=== PATIENT | male | born 1930 | race Caucasian/White ===

== ENCOUNTER → 2016-11-05 | Outpatient (CLI) | payer OTHER, MEDICARE ==
[~2016-11-05] VITALS: Ht 167.6 cm; Wt 78.7 kg
[~2016-11-05] MED LIST: ADULT LOW DOSE81 MG PO; BYSTOLIC2.5 MG PO; CARVEDILOL12.5 MG PO; COREG3.125 MG PO; CRESTOR10 MG PO; CRESTOR20 MG PO; EFFIENT10 MG PO; K-DUR 20 MEQ T20 MEQ PO; LISINOPRIL5 MG PO; LORTAB 5 MG/5001 TA1 PO; PLAVIX 75 MG TA75 MG PO; PRESERVISION T1 EACH PO; TRAMADOL 50 MG50 MG PO
--- NOTE | ~2016-11-05 | HPC ---
[facility] [place] [address] PAIN MANAGEMENT CONSULTATION Name: CLARK CASE [facility] [id number] Admission: 11/05/16 Attend Phys: Kris Burnham DO Discharge: Date of : 32 Report #: [id number] THIS REPORT FOR: //name// CC: JEFFERY Burnham DATE OF SERVICE: 11/05/2016 DATE OF SERVICE: 11/05/2016. REFERRING PHYSICIAN: Nurse practitioner Alejandra Bowman. CHIEF COMPLAINT: Low back pain, lower extremity pain and paresthesias. HISTORY OF PRESENT ILLNESS: As you know, the patient is a very pleasant 86-year-old male who returns today in followup visit requesting to undergo the next in a series of epidural injections under fluoroscopic guidance. The patient states that he has discontinued his Effient 7 days ago in preparation for today's procedure. The patient indicates pain level of 10/10 while standing up, exacerbated with movement, lying on his right side, getting up from a seated position, improves with lying down, sitting position and epidural injections. He has returned requesting the next in a series of epidural injections, both in the success of previous intervention. ALLERGIES: No known drug allergies. CURRENT MEDICATIONS: Aspirin, Nexium, Ocuvite, tramadol, lisinopril, carvedilol, Effient. SOCIAL HISTORY: The patient is a reformed smoker, quit in 1998. Denies IV or illicit drug use. Denies any chronic alcohol use. He is accompanied by his daughter. IMAGING: No new imaging available. PHYSICAL EXAMINATION: VITAL SIGNS: Blood pressure 129/73, pulse 59, respiratory rate 16, unlabored. The patient 98% on room air. Height 5 feet 6 inch tall, weight 173.4 pounds, BMI calculated 28. GENERAL: Well-developed, well-nourished, well-hydrated 86-year-old male appearing stated age, placing current pain score at around 10/10. HEENT: Normocephalic, atraumatic. Pupils equal, round, reactive to light. EXTREMITIES: Show no clubbing, no cyanosis, no edema. MUSCULOSKELETAL: Seated straight leg raising negative. Supine straight leg raising positive. Vivian's test negative. Modified Gaenslen's positive for axial low back pain. Ankle clonus negative. Gait is antalgic and wide based. [address] [address] PAIN MANAGEMENT CONSULTATION Name: CLARK CASE Delroy Room #: REG [facility] Jerry#: [id number] Admission: 11/05/16 Attend Phys: Kris Burnham DO Discharge: Date of : 32 Report #: [id number] Forward flexion of the lumbar spine in stance position. ASSESSMENT: 1. Symptomatic lumbar radiculopathy. 2. 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 3. Displacement of lumbar intervertebral disk with radiculopathy. 4. Lumbosacral spondylosis with radiculopathy. 5. Lumbar degeneration. 6. Chronic intractable pain. PLAN: 1. The patient returns today in followup visit having discontinued his Effient in preparation for an epidural injection. The patient has been off the Effient for 7 days. He has requested. We will perform a lumbar epidural injection under fluoroscopic guidance. He was without advised the risks and benefits of this procedure. These risks include but not necessarily limited to bleeding, bruising, infection, worsening pain, no relief of pain, also risk of temporary or permanent muscle weakness, temporary or permanent nerve damage, possible paralysis and . The patient states understood and wished to proceed. 2. No medication changes were made at today's visit, the patient to continue current medical therapy as previously prescribed. 3. The patient to return to our clinic on an as needed basis for next in the series of epidural injections. PROCEDURE NOTE DESCRIPTION OF PROCEDURE: Lumbar epidural steroid injection under fluoroscopic guidance. This is the first procedure of the third series that the patient is undergoing. After obtaining written consent, the patient was taken back to the fluoroscopy suite, placed in a prone position with pillow under the abdomen to decrease lumbar lordosis. The skin overlying the lumbosacral area was then prepped and draped in aseptic fashion. The lumbar vertebral interspace was then identified by AP fluoroscopy. The skin and subcutaneous tissue overlying the target site of injection was anesthetized with 3 mL 1% lidocaine. A 20-gauge 3-1/2 inch Tuohy needle was then advanced under fluoroscopic guidance towards the epidural space using a paramedian approach. The epidural space was identified using loss of resistance to air technique. After negative aspiration for heme or cerebrospinal fluid, a total of 1 mL of Omnipaque was injected. A lumbar epidurogram was confirmed using both AP and lateral fluoroscopy. After negative aspiration for heme or cerebrospinal fluid, 5 mL of a solution containing 2 mL 40 mg per mL, 80 mg total triamcinolone, 3 mL lidocaine 1% was injected in increments. Contrast spread was noted posterior epidural space. [facility] [address] [place] [address] PAIN MANAGEMENT CONSULTATION Name: CLARK CASE Room #: REG [facility]#: [id number] Admission: 11/05/16 Attend Phys: Kris Burnham DO Discharge: Date of : 32 Report #: [id number] The needle was then retracted approximately half way and needle tract flushed with 1 mL of 1% lidocaine. Needle was then removed. There were no apparent sensory or motor deficits in the lower extremity following the procedure. A sterile bandage was placed over the injection site. The heart rate, pulse, oximetry and blood pressure were continuously monitored after the procedure. There were no apparent complications. The patient tolerated the procedure well and was carefully escorted to the recovery room in stable condition. There were no apparent complications. After meeting discharge criteria, the patient was then discharged home. <ELECTRONICALLY SIGNED> By: Kris Burnham DO 11/10/16 0710 0721 1213 Kris Burnham DO /nt
[2016-11-05 10:29] VITALS: BP 129/73
== END | disposition home or self-care (01) ==
LOC: PAIN 07:13
DX: M51.16 Intervertebral disc disorders with radiculopathy, lumbar region (principal); M48.06 Spinal stenosis, lumbar region; M47.27 Other spondylosis with radiculopathy, lumbosacral region; G89.29 Other chronic pain; Z87.891 Personal history of nicotine dependence

== ENCOUNTER → 2017-04-07 | Outpatient (CLI) | payer OTHER, MEDICARE ==
[~2017-04-07] VITALS: Ht 167.6 cm; Wt 78.3 kg
--- NOTE | ~2017-04-07 | HPC ---
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 HISTORY OF PRESENT ILLNESS: As you know, the patient is a very pleasant 86-year-old male who returns today in followup visit to undergo the next in a series of epidural injections under fluoroscopic guidance. The patient states his pain is burning, sharp and numbness in sensation. He places current pain score at 7/10/; getting out of bed, walking, lying down appears to exacerbate symptoms; sitting, repositioning tends to improve pain. He returns today requesting next in a series of epidural injections under fluoroscopic guidance. He does report that the previous injection provided near 95% improvement in overall pain for nearly 4 months. He returns today requesting next in the series of epidural injections. ALLERGIES: No known drug allergies. CURRENT MEDICATIONS: Aspirin, Nexium, Ocuvite, tramadol, lisinopril, carvedilol, Effient. SOCIAL HISTORY: The patient is a reformed smoker, quit in 1998. Denies IV or illicit drug use. Denies any chronic alcohol use. He is accompanied by his family member today. IMAGING: No new imaging available. PHYSICAL EXAMINATION: VITAL SIGNS: Blood pressure 141/78, pulse is 61, respiratory rate 16 unlabored, the patient is 100% on room air, height 5 feet 6 inches tall, weight 172.6 pounds, BMI calculated 27.9. GENERAL: Well-developed, well-nourished, well-hydrated 86-year-old male appearing stated age, placing current pain score at 7/10. HEENT: Normocephalic, atraumatic. Pupils equal, round, reactive to light. EXTREMITIES: Show no clubbing, no cyanosis, no edema. MUSCULOSKELETAL: Ankle clonus negative. Babinski is negative. Modified Gaenslen's positive for axial low back pain. Gait appears to be antalgic and wide based. Forward flexion of lumbar spine in stance position with loss of lordotic curvature. Seated straight leg raising negative. Supine straight leg [facility] [address] [place] [address] PAIN MANAGEMENT CONSULTATION Name: CLARK CASE Room #: [facility] [id number] Admission: 04/07/17 Attend Phys: Kris Burnham DO Discharge: Date of : 32 Report #: [id number] raising positive. ASSESSMENT: 1. Symptomatic lumbar radiculopathy. 2. 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 3. Displacement of lumbar intervertebral disk with radiculopathy. 4. Lumbosacral spondylosis with radiculopathy. 5. Lumbar degeneration. 6. Lumbar facet arthropathy. 7. Chronic intractable pain. PLAN: 1. The patient returns today in followup visit having discontinued his Effient in preparation for today's epidural injection. He has been off the Effient for nearly 7 days. He returns to undergo this epidural injection in hopes of improving pain further. He denies new injury, new trauma that may have led to progression of symptoms. He is hopeful to see similar improvement as he has with previous injection, 95% at the last visit. 2. No medication changes were made at today's visit. The patient will restart his Eliquis as directed. 3. We will see the patient back in followup visit on an as needed basis for possible repeat epidural injection. PROCEDURE NOTE DESCRIPTION OF PROCEDURE: Lumbar epidural steroid injection under fluoroscopic guidance. This is the second procedure of the third series that the patient is undergoing. After obtaining written consent, the patient was taken back to the fluoroscopy suite, placed in a prone position with pillow under the abdomen to decrease lumbar lordosis. The skin overlying the lumbosacral area was then prepped and draped in aseptic fashion. The L4-L5 vertebral interspace was then identified by AP fluoroscopy. The skin and subcutaneous tissue overlying the target site of injection was anesthetized with 3 mL 1% lidocaine. A 20-gauge, 3.5 inch Tuohy needle was then advanced under fluoroscopic guidance towards the epidural space using a paramedian approach. The epidural space was identified using loss of resistance to air technique. After negative aspiration for heme or cerebrospinal fluid, a total of 1 mL of Omnipaque was injected. A lumbar epidurogram was confirmed using both AP and lateral fluoroscopy. After negative aspiration for heme or cerebrospinal fluid, 5 mL of a solution containing 2 mL 40 mg/mL 80 mg total of triamcinolone, 3 mL of lidocaine 1% was injected in increments. Contrast spread was noted in the posterior epidural space. The needle was then retracted approximately half way and needle tract [address] [address] PAIN MANAGEMENT CONSULTATION Name: CLARK CASE Room #: REG [facility] Amy#: [id number] Admission: 04/07/17 Attend Phys: Kris Burnham DO Discharge: Date of : 32 Report #: [id number] flushed with 1 mL of 1% lidocaine. Needle was then removed. There were no apparent sensory or motor deficits in the lower extremity following the procedure. A sterile bandage was placed over the injection site. The heart rate, pulse, oximetry and blood pressure were continuously monitored after the procedure. There were no apparent complications. The patient tolerated the procedure well and was carefully escorted to the recovery room in stable condition. There were no apparent complications. After meeting discharge criteria, the patient was then discharged home. By: [id number] Kris Burnham DO /nt
[2017-04-07 10:12] VITALS: BP 141/78
== END | disposition home or self-care (01) ==
LOC: PAIN 07:09
DX: M51.16 Intervertebral disc disorders with radiculopathy, lumbar region (principal); M48.06 Spinal stenosis, lumbar region; M47.27 Other spondylosis with radiculopathy, lumbosacral region; M12.88 Other specific arthropathies, not elsewhere classified, other specified site; G89.29 Other chronic pain; Z98.890 Other specified postprocedural states; Z79.899 Other long term (current) drug therapy; Z79.82 Long term (current) use of aspirin; Z87.891 Personal history of nicotine dependence

== ENCOUNTER → 2017-09-16 | Outpatient (CLI) | payer OTHER, MEDICARE ==
[~2017-09-16] VITALS: Ht 167.6 cm; Wt 81.6 kg
[~2017-09-16] MED LIST changes: +HYDROCODONE-AP1 EAC6 PO; +LYRICA 50 MG50 MG PO; +PLAVIX 75 MG TA75 M1 PO
--- NOTE | ~2017-09-16 | HPC ---
[facility] [address] [place] [address] PAIN MANAGEMENT CONSULTATION Name: CLARK CASE Room #: REG [facility] Amy.#: [id number] Admission: 09/16/17 Attend Phys: Kris Burnham DO Discharge: Date of : 32 Report #: [id number] THIS REPORT FOR: //name// CC: JEFFERY SILVA MD DATE OF SERVICE: 09/16/2017 CHIEF COMPLAINT: Low back pain, lower extremity pain and paresthesias. HISTORY OF PRESENT ILLNESS: As you know, the patient is a very pleasant 87-year-old male who returns today in followup visit with recurrent low back pain, bilateral lower extremity pain with paresthesias. The patient describes pain as burning, sharp in sensation. He indicates pain is exacerbated with getting out of bed, walking; improves with lying down, sitting and medications. He is placing current pain score 3/10. The patient indicates today he has been recently placed on anticoagulation in the form of Effient due to a recent cerebrovascular accident. He is to remain on this medication for the foreseeable future. He returns to discuss options for treatment. ALLERGIES: No known drug allergies. CURRENT MEDICATIONS: Carvedilol 12.5 mg once a day, tramadol 50 mg once a day, Effient 10 mg once a day, lovastatin 20 mg once a day, aspirin 81 mg per day. SOCIAL HISTORY: The patient is a former smoker, quit in 1998. Denies IV or illicit drug use. Denies any chronic alcohol use. He is accompanied by his family member who is present in room today. IMAGING: No new imaging available. PHYSICAL EXAMINATION: VITAL SIGNS: Blood pressure 114/68, pulse 63, respiratory rate 16 and unlabored. The patient is 100% on room air. Height 5 feet 6 inches tall, weight 180 pounds, BMI calculated 29.1. GENERAL: Well-developed, well-nourished, well-hydrated, 87-year-old male. He appears his stated age, placing current pain score 3/10. HEENT: Normocephalic, atraumatic. Pupils equal, round, reactive to light. Extraocular muscles are intact. Sclerae nonicteric without injection. NEUROLOGIC: Cranial nerves 2 through 12 grossly intact. Speech fluent. The patient deemed a good historian. EXTREMITIES: Show no clubbing, no cyanosis, no edema. MUSCULOSKELETAL: Seated straight leg raising negative. Supine straight leg raising positive. CAIT'S test negative. Modified Gaenslen's positive for [address] [address] PAIN MANAGEMENT CONSULTATION Name: CLARK CASE Room #: REG [facility] Amy.#: [id number] Admission: 09/16/17 Attend Phys: Kris Burnham DO Discharge: Date of : 32 Report #: [id number] axial low back pain. Ankle clonus negative. Babinski is negative. Muscle bulk and tone equal and symmetrical in lower extremities. ASSESSMENT: 1. Symptomatic lumbar radiculopathy. 2. 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 3. Displacement of lumbar intervertebral disk with radiculopathy. 4. Lumbosacral spondylosis with radiculopathy. 5. Lumbar degeneration. 6. Chronic anticoagulation. 7. Chronic intractable pain. PLAN: 1. The patient returns today in followup visit indicating a recent cerebrovascular accident. The patient will have to remain on anticoagulation for the foreseeable future. He will not be able to go off this medication at least for 1 year. Unfortunately, with the current anticoagulation the patient is on, neuraxial blockage and epidural injections will be precluded. PASTORA guidelines require the patients off Effient for 7 days prior to any injection therapies. The patient will not be able to come off this medication at this time. We will make adjustments in medication therapy in hopes of improving pain. 2. The patient will be started on hydrocodone 5/325 one tab p.o. q. 12 hours p.r.n. for pain, #60 was provided. I advised the patient to take the medication only when pain is intolerable, not to rely on the medication prophylactically. 3. The patient will be started on Lyrica, will utilize samples for treatment. We are hopeful the patient will see improvement in symptoms with this neuropathic pain medication. We will begin with 50 mg dose 1 tab p.o. at bedtime 7 nights, then increase to 100 mg p.o. at bedtime for 7 nights, then 50 mg morning and 100 mg at night. He was given samples of the Lyrica to trial over the next couple of weeks. If this is effective at treating the symptoms, the patient will contact our clinic. He was advised to watch for side effects of somnolence, decreased mental acuity, disorientation, confusion with the initiation of this therapy. 4. We will see the patient back in followup visit to discuss efficacy of medications and adjust treatment options if necessary. <ELECTRONICALLY SIGNED> By: Kris Burnham DO 09/23/17 0739 0727 0749 Kris Burnham DO /nt
[2017-09-16 09:48] VITALS: BP 114/68
== END ==
LOC: PAIN 06:37
DX: M48.061 Spinal stenosis, lumbar region without neurogenic claudication (principal); M51.16 Intervertebral disc disorders with radiculopathy, lumbar region; M47.27 Other spondylosis with radiculopathy, lumbosacral region; M79.605 Pain in left leg; G89.29 Other chronic pain; Z79.01 Long term (current) use of anticoagulants

== ENCOUNTER → 2017-09-30 | Outpatient (CLI) | payer OTHER, MEDICARE ==
[~2017-09-30] VITALS: Ht 167.6 cm; Wt 80.4 kg
--- NOTE | ~2017-09-30 | HPC ---
[facility] [place] [address] PAIN MANAGEMENT CONSULTATION Name: CLARK CASE Room #: REG [facility] MJame.#: [id number] Admission: 09/30/17 Attend Phys: Kris Burnham DO Discharge: Date of : 32 Report #: [id number] THIS REPORT FOR: //name// CC: JEFFERY Aldrich MD DATE OF SERVICE: 09/30/2017 CHIEF COMPLAINT: Low back pain, lower extremity pain and paresthesias. HISTORY OF PRESENT ILLNESS: As you know, the patient is a very pleasant 87-year-old male who returns today in followup visit with continued low back pain, lower extremity pain with paresthesias. Unfortunately, the patient has been precluded from undergoing interventional treatments due to initiation of anticoagulation therapy that he can no longer come off due to cerebrovascular accidents. The patient indicates today that the adjustments in medications have provided pain score 3/10. States his pain remains burning, aching and sharp, exacerbated with getting out of bed, walking, improves with lying down, seated position and medications. He returns today for possible adjustments in medication therapy. He does feel the Lyrica has been beneficial, but has yet to reach the most efficacious dose. He is experiencing no side effects with the medication at this time. We will make further adjustments in his Lyrica therapy as we are attempting to gain improvement in his analgesia. ALLERGIES: No known drug allergies. CURRENT MEDICATIONS: Carvedilol, tramadol, Effient, losartan, aspirin. SOCIAL HISTORY: The patient is reformed smoker. He quit in 1988. Denies IV or illicit drug use. Denies any chronic alcohol use. He is accompanied by a family member present in room today. IMAGING: No new imaging available. PHYSICAL EXAMINATION: VITAL SIGNS: Blood pressure 124/66, pulse 61, respiratory rate 18, unlabored. The patient is 97% on room air. Height 5 feet 6 inches tall, weight is 177.2 pounds, BMI calculated 28.6. GENERAL: Well-developed, well-nourished, well-hydrated 87-year-old male, appears stated age, placing current pain score 3/10. HEENT: Normocephalic, atraumatic. Pupils are equal, round, reactive to light. EXTREMITIES: Show no clubbing, no cyanosis, no edema. MUSCULOSKELETAL: Seated straight leg raising negative. Supine straight leg raising remains positive. Vivian's test negative. Modified Gaenslen's positive [facility] [address] [place] [address] PAIN MANAGEMENT CONSULTATION Name: CLARK CASE Room #: REG [facility].#: [id number] Admission: 09/30/17 Attend Phys: Kris Burnham DO Discharge: Date of : 32 Report #: [id number] for axial back pain. Ankle clonus negative. Babinski is negative. ASSESSMENT: 1. Symptomatic lumbar radiculopathy. 2. 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 3. Displacement of lumbar intervertebral disk with radiculopathy. 4. Lumbosacral spondylosis with radiculopathy. 5. Lumbar degeneration. 6. Chronic anticoagulation. 7. Chronic intractable pain. PLAN: 1. The patient returns today in followup visit, continued on his anticoagulant therapy. We once again discussed with the patient that epidural injections are no longer a possibility given the fact that he is going to be on anticoagulation for the remainder of his life. This will preclude us from providing any type of neural axial blockades including epidural injections from this point forward. Surgical options could be entertained if the patient was admitted to the hospital, initiated on Lovenox therapy, undergo surgery, bridged from Lovenox back to his Effient and then back to typical anticoagulant therapy, though this is not recommended in this patient's case per his neurosurgery team. This leaves us with only treatment option medications. We began the patient on Lyrica with good improvement in symptoms. He returns for adjustments in the therapy. 2. We would recommend increasing the Lyrica to 50 mg twice a day to begin escalating the dose to reach more efficacious level. He will continue this for 1 week, then increase to 75 mg twice a day for 1 week, then increase to 75 mg in the morning, 150 mg at night, assuming he needs further adjustments. The patient was given samples to be able to titrate as directed. Once he reaches a level of improvement in pain where he believes pain is tolerable, he is to stabilize with that dose. If side effects are noted, he is to contact our clinic. He was given samples to titrate. Once he has reached an efficacious level, we will provide a full prescription. 3. We will see the patient back in followup visit once he has titrated his medication or earlier if adjustments need to be made for further treatment. <ELECTRONICALLY SIGNED> By: Kris Burnham DO 10/13/17 0908 0949 57 Kris Burnham DO /nt
[2017-09-30 11:05] VITALS: BP 124/66
== END ==
LOC: PAIN 06:59
DX: M47.27 Other spondylosis with radiculopathy, lumbosacral region (principal); G89.29 Other chronic pain; D68.0 Von Willebrand disease

== ENCOUNTER → 2017-11-11 | Outpatient (CLI) | payer OTHER, MEDICARE ==
[~2017-11-11] VITALS: Ht 182.9 cm; Wt 80.3 kg
--- NOTE | ~2017-11-11 | HPC ---
[facility] [place] [address] PAIN MANAGEMENT CONSULTATION Name: CLARK CASE Room #: REG Pura MJame.#: [id number] Admission: 11/11/17 Attend Phys: Kris Burnham DO Discharge: Date of : 32 Report #: [id number] THIS REPORT FOR: //name// CC: JEFFERY Bowman NP DATE OF SERVICE: 11/11/2017 REFERRING PHYSICIAN: Alejandra Bowman NP CHIEF COMPLAINT: Low back pain, lower extremity pain with paresthesias. HISTORY OF PRESENT ILLNESS: As you know, the patient is a very pleasant 87-year-old male, who returns today in followup visit indicating that he was having side effects to his Lyrica. He began to experience lower extremity swelling that became fairly profound. He was advised to discontinue medication and his symptoms did resolve. The patient returns today in followup visit with pain level of around 4-5/10. He states the pain is burning, sharp in sensation, exacerbated with getting out of bed, walking, lying down, sitting. Medications appear to improve pain. His side effects to the Lyrica subsided within about a 24-48 hour period. He has discontinued Lyrica from that point forward. He returns to discuss options for treatment. ALLERGIES: No known drug allergies. CURRENT MEDICATIONS: Carvedilol, tramadol, Effient, losartan, aspirin. SOCIAL HISTORY: The patient is a reformed smoker, quit in 1997. Denies IV or illicit drug use. Denies any chronic alcohol use. He is accompanied by his present in room today. IMAGING: No new imaging available. PQRS: The patient has osteoarthritis. No rheumatoid arthritis. He has a pain intensity of 4-5/10. He is not a fall risk, has not had a fall in the last 3 months. He is on blood thinner in the form of Plavix. He has a history of hypertension for which he is being treated. He has been on opioid therapy for greater than 6 weeks. He will be renewing his opioid contract with us today. Risk assessment tool shows low risk, 3 out of the total. Functional assessment shows 17/70, mild interference of daily activities secondary to pain. PHYSICAL EXAMINATION: VITAL SIGNS: Blood pressure 144/68, pulse 59, respiratory rate 14, unlabored. The patient is 98% on room air. Height 6 feet tall, weight 177 pounds, [place] [address] PAIN MANAGEMENT CONSULTATION Name: CLARK CASE Room #: REG CLI [facility]#: [id number] Admission: 11/11/17 Attend Phys: Kris Burnham DO Discharge: Date of : 32 Report #: [id number] calculated at 24. GENERAL: Well-developed, well-nourished, well-hydrated 87-year-old male appearing his stated age. Pain is rated anywhere between 4-5/10. HEENT: Normocephalic, atraumatic. Pupils equal, round, reactive to light. EXTREMITIES: Show no clubbing, no cyanosis, no edema. MUSCULOSKELETAL: Lower extremity strength appears equal and symmetrical 5/5. Muscle bulk and tone equal and symmetrical. Seated straight leg raising negative. Supine straight leg raising positive. Vivian's test negative. Gait mildly antalgic, appears to be favoring left lower extremity over right. ASSESSMENT: 1. Symptomatic lumbar radiculopathy. 2. 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 3. Displacement of lumbar intervertebral disk with radiculopathy. 4. Lumbosacral spondylosis with radiculopathy. 5. Lumbar degeneration. 6. Chronic intractable pain. PLAN: 1. The patient returns today in followup visit requesting adjustments in medication therapy. The patient has seen recent news articles and reports on the television as well as reports on his local radio stations about opioid medications. He is very resistant to initiate opioid therapy due to his concerns of this medication. The patient states that he is doing well with tramadol and wishes to continue that therapy. He is taking 1-3 times per day p.r.n. for pain and this appears to be working well. He is denying any side effects with its use. At this point, I have no reason why the patient could not continue on the tramadol therapy, it is a low opioid type medication, but has low potential for addiction and the patient appears to be utilizing it appropriately. We will make the adjustment of medication today. 2. The patient will be provided a prescription of tramadol 50 mg dose 1 tab p.o. t.i.d. p.r.n. pain, #90 with 2 refills, 3 months' worth of medication. 3. The patient was advised to remain off of Lyrica. It does appear that patient was having a side effect to the medication in the form of increasing lower extremity edema. He subsequently discontinued the medication per our suggestions and his symptoms resolved within a 2-day period. He states that the swelling was so profound that he would not be willing to go back on the medication despite the fact he was getting excellent benefit with its use. We will address neuropathics if necessary in the future. 4. We will see the patient back in followup visit in 3 months. At that time, we can discuss efficacy of tramadol and determine if he want to continue with this therapy or make adjustments further. <ELECTRONICALLY SIGNED> By: Kris Burnham DO 11/17/17 0916 [id number] [id number] Kris Burnham DO /nt
[2017-11-11 10:39] VITALS: BP 144/68
== END ==
LOC: PAIN 06:52
DX: M54.16 Radiculopathy, lumbar region (principal); M47.896 Other spondylosis, lumbar region; G89.29 Other chronic pain

== ENCOUNTER → 2019-10-20 | Outpatient (CLI) | payer OTHER, MEDICARE | LOC: SJCVC 11:23 | DX: I45.4 Nonspecific intraventricular block (principal); R94.31 Abnormal electrocardiogram [ECG] [EKG]; I25.5 Ischemic cardiomyopathy; E78.00 Pure hypercholesterolemia, unspecified; I25.10 Atherosclerotic heart disease of native coronary artery without angina pectoris; I73.9 Peripheral vascular disease, unspecified; I10 Essential (primary) hypertension; I48.91 Unspecified atrial fibrillation; I71.4 Abdominal aortic aneurysm, without rupture; Z79.899 Other long term (current) drug therapy; Z87.891 Personal history of nicotine dependence ==

== ENCOUNTER → 2020-04-25 | Outpatient (CLI) | payer OTHER, MEDICARE ==
[~2020-04-25] MED LIST changes: +CENTRUM SILVER1 EAC7 PO; +COZAAR 25 MG TA25 M2 PO; +ZETIA10 MG PO
== END ==
LOC: SJCVCIMAG 07:48
PROVIDERS: ATTEND Internal Medicine Cardiovascular Disease
DX: I35.1 Nonrheumatic aortic (valve) insufficiency (principal); I77.810 Thoracic aortic ectasia; I70.8 Atherosclerosis of other arteries; I48.91 Unspecified atrial fibrillation; R00.0 Tachycardia, unspecified; R94.31 Abnormal electrocardiogram [ECG] [EKG]; I25.10 Atherosclerotic heart disease of native coronary artery without angina pectoris; I25.5 Ischemic cardiomyopathy; I65.23 Occlusion and stenosis of bilateral carotid arteries; I10 Essential (primary) hypertension; I73.9 Peripheral vascular disease, unspecified; M79.605 Pain in left leg; E78.00 Pure hypercholesterolemia, unspecified; E78.5 Hyperlipidemia, unspecified; R94.39 Abnormal result of other cardiovascular function study; Z87.891 Personal history of nicotine dependence; Z86.73 Personal history of transient ischemic attack (TIA), and cerebral infarction without residual deficits; Z95.810 Presence of automatic (implantable) cardiac defibrillator; Z79.82 Long term (current) use of aspirin; Z79.899 Other long term (current) drug therapy

== ENCOUNTER → 2020-04-27 | Outpatient (CLI) | payer OTHER, MEDICARE ==
[~2020-04-27] VITALS: Ht 182.9 cm; Wt 77.1 kg
[2020-04-27 08:39] LABS: HEMATOCRIT 42.5 % (42.0-52.0); MCH 33.1 pg (26.0-34.0); MCV 100.3 fL (80.0-100.0); PLATELET COUNT 287 thou/uL (150-400); RBC 4.24 mil/uL (4.50-6.00); RDW 13.3 % (10.5-14.5); WBC 6.7 thou/uL (4.0-11.0)
[2020-04-27 08:46] VITALS: BP 154/68
[2020-04-27 08:51] LABS: CALCIUM 8.8 mg/dL (8.5-10.1); CREATININE 1.7 mg/dL (0.7-1.3); POTASSIUM 4.6 mmol/L (3.5-5.1)
[2020-04-27 10:09] LABS: ABSOLUTE NEUTROPHILS 3.9 thou/uL (1.4-8.2)
[2020-04-27 10:11] LABS: LARGE PLATELETS OCCASIONAL
--- NOTE | 2020-04-27 14:04 | CATHLAB ---
[facility] [place] [address] INVASIVE PROCEDURE REPORT Name: CLARK CASE Room #: REG BRANDON Reyes.#: [id number] Admission: 04/27/20 Attend Phys: Juvencio العراقي MD, Discharge: Date of : 32 Report #: [id number] THIS REPORT FOR: cc: Shant Maynard MD, Andrew J MD Mancuso, Gerald M. 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 Coronary angiography was performed using coronary diagnostic catheters. The right coronary system was accessed and visualized with a JR4 catheter. The left coronary system was accessed and visualized with a JL4 catheter. The left ventricle was accessed and visualized with a PIGTAIL catheter. Left ventriculogram was performed in 30 degree projection. Closure device was deployed with a 7 Fr MYNXGRIP 6/7F #[id number]. The patient tolerated the procedure well and there were no complications associated with the procedure. There was no hematoma. Intraoperative Conscious Sedation Sedation start time: 09 Case end Time: 1120 Fentanyl 100 mcg Versed 2 mg Fluoro Time: 7.60 minutes Dose: DAP 86111.40 cGycm2 984 mGy [facility] [place] [address] INVASIVE PROCEDURE REPORT Name: CLARK CASE Room #: [facility]#: [id number] Admission: 04/27/20 Attend Phys: Juvencio العراقي, Discharge: Date of : 32 Report #: [id number] Contrast Type and Amount: Visipaque 92 ml Hemodynamics The aortic pressure is 133/60 mmHg with a mean of 87 mmHg. The left ventricular pressure is 142/15 mmHg with a mean of mmHg. The left ventricular end diastolic pressure is 20 mmHg. PCI Technique Lesion Percutaneous coronary intervention was performed on the Mid common iliac. Conclusion 1. Normal left ventricular size with subtle anterior apical hypokinesis EF 50% #2 left main mildly calcified giving rise to LAD and circumflex distal narrowing of 30% #3 LAD with proximal stent and calcification noted widely patent previously placed mid vessel lesion of 30 to 40% at diagonal bifurcation extends to the apex. No occlusive disease. #4 circumflex OM nondominant mild disease #5 dominant right coronary artery with tandem areas in the mid vessel of 60 to 70% calcified preserved distal vessel relatively small vessel overall. Treat medically. Recommendations and plan: Continue aggressive risk factor modification. Patient relatively asymptomatic. Some evidence of inferior wall ischemia. Complex calcified vessel not high-grade will follow closely and treat medically. See Dr. Bey note for peripheral intervention. <ELECTRONICALLY SIGNED> By: Juvencio العراقي MD, [facility] 04/27/20 1403 1403 140 Juvencio العراقي MD, FACC /INF
== END | disposition home or self-care (01) ==
LOC: CATH 07:45
PROVIDERS: Nuclear Medicine Nuclear Cardiology; ATTEND Internal Medicine Cardiovascular Disease
DX: R07.9 Chest pain, unspecified (principal); I25.10 Atherosclerotic heart disease of native coronary artery without angina pectoris; I70.213 Atherosclerosis of native arteries of extremities with intermittent claudication, bilateral legs; I70.248 Atherosclerosis of native arteries of left leg with ulceration of other part of lower leg; L97.929 Non-pressure chronic ulcer of unspecified part of left lower leg with unspecified severity; I70.1 Atherosclerosis of renal artery; I10 Essential (primary) hypertension; E78.5 Hyperlipidemia, unspecified; Z98.890 Other specified postprocedural states; Z79.899 Other long term (current) drug therapy; Z79.82 Long term (current) use of aspirin

== ENCOUNTER → 2020-08-27 | Outpatient (CLI) | payer OTHER, MEDICARE | LOC: SJCVCIMAG 09:07 | PROVIDERS: ATTEND Nuclear Medicine Nuclear Cardiology | DX: I65.23 Occlusion and stenosis of bilateral carotid arteries (principal); I71.4 Abdominal aortic aneurysm, without rupture; I77.9 Disorder of arteries and arterioles, unspecified; Z95.828 Presence of other vascular implants and grafts; Z79.899 Other long term (current) drug therapy; Z87.891 Personal history of nicotine dependence ==

== ENCOUNTER → 2020-08-28 | Outpatient (CLI) | payer OTHER, MEDICARE | LOC: SJCVC 11:29 | PROVIDERS: ATTEND Internal Medicine Cardiovascular Disease | DX: R94.31 Abnormal electrocardiogram [ECG] [EKG] (principal); I45.4 Nonspecific intraventricular block; I44.1 Atrioventricular block, second degree; I73.9 Peripheral vascular disease, unspecified; R00.0 Tachycardia, unspecified; I71.4 Abdominal aortic aneurysm, without rupture; I25.10 Atherosclerotic heart disease of native coronary artery without angina pectoris; E78.00 Pure hypercholesterolemia, unspecified; I48.91 Unspecified atrial fibrillation; I10 Essential (primary) hypertension; I42.9 Cardiomyopathy, unspecified; I65.23 Occlusion and stenosis of bilateral carotid arteries; Z79.82 Long term (current) use of aspirin; Z79.899 Other long term (current) drug therapy; Z87.891 Personal history of nicotine dependence ==

== ENCOUNTER → 2021-03-19 | Outpatient (CLI) | payer OTHER, MEDICARE | LOC: SJCVCIMAG 06:57 | PROVIDERS: ATTEND Nuclear Medicine Nuclear Cardiology | DX: R94.31 Abnormal electrocardiogram [ECG] [EKG] (principal); I45.4 Nonspecific intraventricular block; R00.1 Bradycardia, unspecified; I35.8 Other nonrheumatic aortic valve disorders; I35.1 Nonrheumatic aortic (valve) insufficiency; I73.9 Peripheral vascular disease, unspecified; I71.4 Abdominal aortic aneurysm, without rupture; I77.9 Disorder of arteries and arterioles, unspecified; I25.10 Atherosclerotic heart disease of native coronary artery without angina pectoris; I48.91 Unspecified atrial fibrillation; I10 Essential (primary) hypertension; E78.00 Pure hypercholesterolemia, unspecified; I25.5 Ischemic cardiomyopathy; E78.5 Hyperlipidemia, unspecified; I65.23 Occlusion and stenosis of bilateral carotid arteries; Z86.73 Personal history of transient ischemic attack (TIA), and cerebral infarction without residual deficits; Z87.891 Personal history of nicotine dependence; Z72.89 Other problems related to lifestyle; Z79.82 Long term (current) use of aspirin; Z79.899 Other long term (current) drug therapy; Z95.828 Presence of other vascular implants and grafts ==

== ENCOUNTER → 2021-09-05 | Outpatient (CLI) | payer OTHER, MEDICARE | LOC: SJCVCIMAG 12:59 | PROVIDERS: ATTEND Nuclear Medicine Nuclear Cardiology | DX: I70.202 Unspecified atherosclerosis of native arteries of extremities, left leg (principal); E78.5 Hyperlipidemia, unspecified; I10 Essential (primary) hypertension; I65.23 Occlusion and stenosis of bilateral carotid arteries; I25.10 Atherosclerotic heart disease of native coronary artery without angina pectoris; Z87.891 Personal history of nicotine dependence; Z72.89 Other problems related to lifestyle; Z79.82 Long term (current) use of aspirin; Z79.899 Other long term (current) drug therapy ==

== ENCOUNTER → 2021-10-16 | Outpatient (CLI) | payer OTHER, MEDICARE | LOC: SJCVCIMAG 06:53 | PROVIDERS: ATTEND Nuclear Medicine Nuclear Cardiology | DX: I65.23 Occlusion and stenosis of bilateral carotid arteries (principal); R94.31 Abnormal electrocardiogram [ECG] [EKG]; I25.10 Atherosclerotic heart disease of native coronary artery without angina pectoris; I25.5 Ischemic cardiomyopathy; I77.9 Disorder of arteries and arterioles, unspecified; I71.4 Abdominal aortic aneurysm, without rupture; I73.9 Peripheral vascular disease, unspecified; I10 Essential (primary) hypertension; E78.00 Pure hypercholesterolemia, unspecified; I77.1 Stricture of artery; Z95.828 Presence of other vascular implants and grafts; M79.604 Pain in right leg; E78.5 Hyperlipidemia, unspecified; M79.605 Pain in left leg; I48.91 Unspecified atrial fibrillation; G62.9 Polyneuropathy, unspecified; F17.210 Nicotine dependence, cigarettes, uncomplicated; Z79.82 Long term (current) use of aspirin; Z79.899 Other long term (current) drug therapy; Z72.89 Other problems related to lifestyle ==